=== PATIENT | male | born 1990 | race Hispanic/Latino ===

== ENCOUNTER 2019-05-01 08:42 | Emergency (ER) | payer SELFPAY ==
[2019-05-01] MEDS ORDERED: LIDOCAINE 2%-EPI 1:200,000 20 ML VIAL IJ ONE (09:15)
[2019-05-01 09:30] LABS: EOSINOPHILS % (AUTO) 2.7 % (0.0-8.0); HEMATOCRIT 45.1 % (42-54); LYMPHOCYTES % (AUTO) 28.1 % (21.0-51.0); MEAN CORPUSCULAR HEMOGLOBIN 29.3 pg (27.0-33.0); MEAN CORPUSCULAR HGB CONC 33.6 g/dL (32.0-36.0); MONOCYTES % (AUTO) 8.6 % (3.0-13.0); NEUTROPHILS % (AUTO) 59.6 % (40.0-77.0); PLATELET COUNT (AUTO) 274 K/uL (130-400); RED BLOOD CELL COUNT(AUTO) 5.19 MIL/uL (4.50-6.20); RED CELL DISTRIBUTION WIDTH 13.9 % (11.0-15.5); WHITE BLOOD COUNT (AUTO) 14.3 K/uL (4.8-10.8)
[2019-05-01 09:39] LABS: CREATININE 0.9 mg/dL (0.5-1.5); POTASSIUM 3.8 mmol/L (3.5-5.1)
== END 2019-05-01 10:19 | disposition home or self-care (01) ==
LOC: EDH 08:42
DX: J86.9 Pyothorax without fistula (principal); Z72.0 Tobacco use
CPT/HCPCS: 36415; 80048; 85025; 99284; J3490

== ENCOUNTER 2023-05-17 17:36 | Emergency (ER) | payer OTHER ==
[~2023-05-17] VITALS: Ht 170.2 cm; Wt 95.3 kg
[2023-05-17 18:12] LABS: BASOPHILS # (AUTO) 0.12 K/uL (0.00-0.20); BASOPHILS % (AUTO) 0.8 % (0.0-5.0); EOSINOPHILS # (AUTO) 0.14 K/uL (0.00-0.70); EOSINOPHILS % (AUTO) 0.9 % (0.0-8.0); HEMATOCRIT 43.2 % (42-54); IMMATURE GRANULOCYTE ABSOLUTE 0.06 K/uL (0-1); MEAN CORPUSCULAR HEMOGLOBIN 28.4 pg (27.0-33.0); MEAN CORPUSCULAR HGB CONC 33.6 g/dL (32.0-36.0); MEAN CORPUSCULAR VOLUME 84.5 fL (79-99); MONOCYTES # (AUTO) 0.8 K/uL (0.1-1.0); MONOCYTES % (AUTO) 5.1 % (3.0-13.0); NEUTROPHILS % (AUTO) 79.8 % (40.0-77.0); PLATELET COUNT (AUTO) 280 K/uL (130-400); RED BLOOD CELL COUNT(AUTO) 5.11 MIL/uL (4.50-6.20); RED CELL DISTRIBUTION WIDTH 13.2 % (11.0-15.5); WHITE BLOOD COUNT (AUTO) 15.1 K/uL (4.8-10.8)
[2023-05-17 18:17] LABS: POTASSIUM 3.6 mmol/L (3.5-5.1)
[2023-05-17 18:28] LABS: ALBUMIN 3.6 g/dL (3.5-5.0); BILIRUBIN,TOTAL 0.3 mg/dL (0.2-1.0); TOTAL PROTEIN, SERUM 7.2 g/dL (6.0-8.3)
[2023-05-17] MEDS ORDERED: LABETALOL 20MG SYG IV ONE (18:30)
[2023-05-17] MEDS ORDERED: PANTOPRAZOLE 40 MG/VIAL IVP ONE (18:30)
[2023-05-17 19:18] LABS: APPEARANCE,URINE CLOUDY (CLEAR); BILIRUBIN,URINE NEGATIVE (NEGATIVE); COLOR,URINE LIGHT-YELLOW (YELLOW); GLUCOSE, URINE (UA) NEGATIVE (NEGATIVE); KETONES,URINE NEGATIVE (NEGATIVE); LEUKOCYTE ESTERASE ,URINE NEGATIVE Leu/uL (NEGATIVE); NITRATE,URINE NEGATIVE (NEGATIVE); OCCULT BLOOD,URINE NEGATIVE (NEGATIVE); PH,URINE 7.5 (5.0-8.0); PROTEIN,URINE NEGATIVE (NEGATIVE); UROBILINOGEN,URINE 0.2 mg/dL (0.2-1.0)
[2023-05-17 19:25] LABS: ADD UA MICROSCOPIC YES
[2023-05-17 19:27] LABS: AMPHET/METH SCREEN,URINE POSITIVE (NEGATIVE); BARBITURATE SCREEN, URINE NEGATIVE (NEGATIVE); BENZODIAZEPINES SCREEN,URINE NEGATIVE (NEGATIVE); CANNABINOID SCREEN,URINE NEGATIVE (NEGATIVE); COCAINE SCREEN,URINE NEGATIVE (NEGATIVE); MUCUS,URINE RARE LPF (None Seen); OPIATE SCREEN,URINE NEGATIVE (NEGATIVE); PHENCYCLIDINE SCREEN,URINE NEGATIVE (NEGATIVE); YEAST,URINE BUDDING RARE /HPF (None Seen)
[2023-05-17 20:04] VITALS: BP 138/61; PULSE 78; RESP 16; O2SAT 97
== END 2023-05-17 20:42 | disposition home or self-care (01) ==
LOC: EDH 17:36
DX: R03.0 Elevated blood-pressure reading, without diagnosis of hypertension (principal); F15.90 Other stimulant use, unspecified, uncomplicated
CPT/HCPCS: 99285; 96374; 71045; 96375; 82550; 83735; 84484; 80053; 80305; 83690; 85025; 81001; 36415; 93005; C9113

== ENCOUNTER 2024-02-05 21:30 | Emergency (ER) | payer OTHER ==
[2024-02-05 22:51] LABS: BASOPHILS # (AUTO) 0.11 K/uL (0.00-0.20); EOSINOPHILS % (AUTO) 0.9 % (0.0-8.0); HEMATOCRIT 44.5 % (42-54); IMMATURE GRANULOCYTE ABSOLUTE 0.04 K/uL (0-1); LYMPHOCYTES # (AUTO) 1.9 K/uL (1.0-4.8); LYMPHOCYTES % (AUTO) 17.3 % (21.0-51.0); MEAN CORPUSCULAR HEMOGLOBIN 27.9 pg (27.0-33.0); MEAN CORPUSCULAR HGB CONC 34.2 g/dL (32.0-36.0); MEAN CORPUSCULAR VOLUME 81.7 fL (79-99); MONOCYTES # (AUTO) 0.8 K/uL (0.1-1.0); MONOCYTES % (AUTO) 6.8 % (3.0-13.0); NEUTROPHILS # (AUTO) 8.2 K/uL (1.8-7.7); NEUTROPHILS % (AUTO) 73.6 % (40.0-77.0); PLATELET COUNT (AUTO) 281 K/uL (130-400); RED BLOOD CELL COUNT(AUTO) 5.45 MIL/uL (4.50-6.20); RED CELL DISTRIBUTION WIDTH 13.1 % (11.0-15.5); WHITE BLOOD COUNT (AUTO) 11.2 K/uL (4.8-10.8)
[2024-02-05 23:13] LABS: ALBUMIN 3.5 g/dL (3.5-5.0); BILIRUBIN,TOTAL 0.4 mg/dL (0.2-1.0); CREATININE 1.2 mg/dL (0.5-1.3); POTASSIUM 3.1 mmol/L (3.5-5.1); TOTAL PROTEIN, SERUM 6.8 g/dL (6.0-8.3)
[2024-02-06] MEDS: LACTATED RINGERS 1000ML 1,000 ML IV ONE (00:37)
[2024-02-06] MEDS: POTASSIUM BICARB/CIT AC 25 MEQ TABLET.EFF ONE (01:20)
[2024-02-06] MEDS: POTASSIUM BICARB/CIT AC 25 MEQ TABLET.EFF PO ONE (01:20)
[2024-02-06 01:21] VITALS: BP 118/82; PULSE 82; RESP 16; O2SAT 98
== END 2024-02-06 01:29 ==
LOC: EEVIPCON 21:30 → EDH 21:30
DX: E87.6 Hypokalemia (principal)
CPT/HCPCS: 99285; 71045; 82550; 80053; 85025; 36415; 93005; 96360; J7120

== ENCOUNTER 2024-02-16 10:53 | Emergency (ER) | payer OTHER ==
[~2024-02-16] VITALS: Ht 170.2 cm; Wt 90.7 kg
[2024-02-16] MEDS: 0.9%NACL 1000ML 1,000 ML IV ONE (11:35)
[2024-02-16] MEDS: MORPHINE 4 MG SYG IVP ONE (11:35)
[2024-02-16] MEDS: ONDANSETRON 4MG INJ IVP ONE (11:35)
[2024-02-16 11:37] LABS: BASOPHILS # (AUTO) 0.13 K/uL (0.00-0.20); BASOPHILS % (AUTO) 0.8 % (0.0-5.0); EOSINOPHILS # (AUTO) 0.09 K/uL (0.00-0.70); EOSINOPHILS % (AUTO) 0.5 % (0.0-8.0); LYMPHOCYTES # (AUTO) 1.8 K/uL (1.0-4.8); LYMPHOCYTES % (AUTO) 10.6 % (21.0-51.0); MEAN CORPUSCULAR HEMOGLOBIN 28.4 pg (27.0-33.0); MEAN CORPUSCULAR HGB CONC 33.8 g/dL (32.0-36.0); MEAN CORPUSCULAR VOLUME 83.9 fL (79-99); MONOCYTES # (AUTO) 0.9 K/uL (0.1-1.0); MONOCYTES % (AUTO) 5.2 % (3.0-13.0); NEUTROPHILS # (AUTO) 14.2 K/uL (1.8-7.7); NEUTROPHILS % (AUTO) 82.3 % (40.0-77.0); PLATELET COUNT (AUTO) 332 K/uL (130-400); RED BLOOD CELL COUNT(AUTO) 5.96 MIL/uL (4.50-6.20); RED CELL DISTRIBUTION WIDTH 13.3 % (11.0-15.5); WHITE BLOOD COUNT (AUTO) 17.2 K/uL (4.8-10.8)
[2024-02-16 11:47] LABS: INR <= 0.93 (0.85-1.15); PROTHROMBIN TIME 10.7 SEC (9.6-11.6)
[2024-02-16 11:48] LABS: PARTIAL THROMBOPLASTIN TIME 25.4 SEC (26.3-35.5)
[2024-02-16 11:50] LABS: CREATININE 0.9 mg/dL (0.5-1.3); POTASSIUM 4.8 mmol/L (3.5-5.1)
[2024-02-16 11:52] LABS: ALBUMIN 3.7 g/dL (3.5-5.0); BILIRUBIN,TOTAL 0.3 mg/dL (0.2-1.0); TOTAL PROTEIN, SERUM 7.1 g/dL (6.0-8.3)
[2024-02-16] MEDS ORDERED: IBUP-2071 PO (12:17)
[2024-02-16] MEDS ORDERED: CYCL10TA16 PO (12:17)
[2024-02-16 12:25] VITALS: BP 136/99; PULSE 81; RESP 16; O2SAT 96
== END 2024-02-16 12:27 ==
LOC: EDH 10:53 → EEVIPCON 10:53 → EDH 12:27
DX: S00.83XA Contusion of other part of head, initial encounter (principal); S09.90XA Unspecified injury of head, initial encounter; Y08.89XA Assault by other specified means, initial encounter; Y93.89 Activity, other specified; Y92.89 Other specified places as the place of occurrence of the external cause; Y99.8 Other external cause status
CPT/HCPCS: 99285; 70450; 96374; 71045; 96361; 96375; 80053; 85025; 85610; 85730; 36415; 72125; J7030; J2405; J2270